=== PATIENT | female | born 1965 | race Caucasian/White ===

== ENCOUNTER 2018-02-23 10:47 | Emergency (ER) | payer OTHER ==
[~2018-02-23] VITALS: Ht 147.3 cm; Wt 74.8 kg
[2018-02-23 10:49] VITALS: Ht 147.3 cm; Wt 74.8 kg
[2018-02-23 12:15] LABS: BASOPHIL % 0.4 % (0-2); PLATELET COUNT 205 x10^3mcL (130-400)
[2018-02-23 12:18] LABS: RED CELL DISTRIBUTION WIDTH 11.3 % (11.5-14.5)
[2018-02-23 12:23] LABS: CALCIUM 9.6 mg/dL (8.5-10.1); CARBON DIOXIDE 25.4 mmol/L (21-32); CREATININE SERUM 1.2 mg/dL (0.6-1.0); POTASSIUM SERUM 4.3 mmol/L (3.5-5.1)
[2018-02-23 12:29] LABS: ALBUMIN 3.4 g/dL (3.4-5.0); BILIRUBIN TOTAL 0.35 mg/dL (0.20-1.00); TOTAL PROTEIN, SERUM 7.3 g/dL (6.4-8.2)
[2018-02-23 13:33] VITALS: BP 100/61
== END 2018-02-23 13:33 | disposition home or self-care (01) ==
LOC: ED 10:47
PROVIDERS: Emergency Medicine
DX: R42 Dizziness and giddiness (principal); R11.2 Nausea with vomiting, unspecified; R53.1 Weakness; E11.9 Type 2 diabetes mellitus without complications
CPT/HCPCS: 82962; J2405; J7030; J8597

== ENCOUNTER 2018-04-05 19:03 | Emergency (ER) | payer OTHER ==
[~2018-04-05] VITALS: Ht 152.4 cm; Wt 77.6 kg
[2018-04-05 19:07] VITALS: Ht 152.4 cm; Wt 77.6 kg
[2018-04-05 19:58] VITALS: BP 154/83
== END 2018-04-05 19:58 | disposition home or self-care (01) ==
LOC: ED 19:03
DX: K05.10 Chronic gingivitis, plaque induced (principal); E11.9 Type 2 diabetes mellitus without complications

== ENCOUNTER 2019-06-18 17:51 | Emergency (ER) | payer MEDICAID ==
[~2019-06-18] VITALS: Ht 157.5 cm; Wt 78.0 kg
[2019-06-18 18:11] VITALS: Ht 157.5 cm; Wt 78.0 kg
[2019-06-18 19:24] LABS: PLATELET COUNT 225 x10^3mcL (130-400); RED CELL DISTRIBUTION WIDTH 12.4 % (11.5-14.5)
[2019-06-18 19:25] LABS: BASOPHIL % 2.5 % (0-2)
[2019-06-18 19:41] LABS: ALBUMIN 3.3 g/dL (3.4-5.0); ALKALINE PHOSPHATASE 73 U/L (46-116); ALT/SGPT 46 U/L (14-59); AST/SGOT 23 U/L (15-37); BILIRUBIN TOTAL 0.25 mg/dL (0.20-1.00); CALCIUM 9.5 mg/dL (8.5-10.1); CARBON DIOXIDE 26.7 mmol/L (21-32); CHLORIDE SERUM 99 mmol/L (98-107); CREATININE SERUM 0.8 mg/dL (0.6-1.0); GFR1 > 60 mL/min; LIPASE 188 IU/L (73-393); POTASSIUM SERUM 4.1 mmol/L (3.5-5.1); SODIUM SERUM 136 mmol/L (136-145); TOTAL PROTEIN, SERUM 7.5 g/dL (6.4-8.2)
[2019-06-18 19:44] LABS: GLUCOSE SERUM 495 mg/dL (74-106)
[2019-06-18 20:31] VITALS: BP 132/69
== END 2019-06-18 20:31 | disposition home or self-care (01) ==
LOC: ED 17:51
PROVIDERS: Emergency Medicine
DX: K21.9 Gastro-esophageal reflux disease without esophagitis (principal); K29.70 Gastritis, unspecified, without bleeding; E11.9 Type 2 diabetes mellitus without complications
CPT/HCPCS: 36415

== ENCOUNTER 2019-08-25 15:49 | Emergency (ER) | payer SELFPAY ==
[~2019-08-25] VITALS: Ht 144.8 cm; Wt 75.7 kg
[2019-08-25 15:52] VITALS: Ht 144.8 cm; Wt 75.7 kg
[2019-08-25 18:03] VITALS: BP 110/65
== END 2019-08-25 18:03 | disposition home or self-care (01) ==
LOC: ED 15:49
DX: J02.9 Acute pharyngitis, unspecified (principal); E11.9 Type 2 diabetes mellitus without complications
CPT/HCPCS: J1100; J1885

== ENCOUNTER 2019-08-27 16:00 | Emergency (ER) | payer SELFPAY ==
[~2019-08-27] VITALS: Ht 152.4 cm; Wt 74.8 kg
[2019-08-27 16:16] VITALS: Ht 152.4 cm; Wt 74.8 kg
[2019-08-27 19:05] VITALS: BP 121/68
== END 2019-08-27 19:12 | disposition home or self-care (01) ==
LOC: ED 16:00
DX: J02.9 Acute pharyngitis, unspecified (principal); E11.9 Type 2 diabetes mellitus without complications
CPT/HCPCS: J1885